=== PATIENT | female | born 1930 | race Hispanic/Latino ===

== ENCOUNTER 2018-03-16 11:51 | Inpatient (IN) | payer MEDICARE, BC ==
[2018-03-16] MEDS ORDERED: Morphine 4 mg/ml ISec IVP STA (12:04)
--- NOTE | 2018-03-16 12:08 | ED PDOC ---
Arrival/HPI - General Chief Complaint: Hip Pain Time Seen by Provider: 03/16/18 11:54 Historian: Patient, EMS - History of Present Illness Narrative History of Present Illness (Text): 03/16/18 12:05 pt p/w + s/p trip and fall while in the kitchen today, just prior to Emergency department arrival today; pt states she was in the kitchen sitting/reading, when she tried to get up to do something, her left leg got caught and she subsequently fell; + left hip/groin/pelvic region pain; pt was unable to stand up on her own, pt states she crawled along the floor and was able to obtain help ; pt states no LOC pre/post fall, no headaches/head injury, no neck pain, no vision changes, no cp/sob/palpitations, no abd pain, no n/v, no numbness/ tingling, no urinary/bowel changes, no incontinence, no sick contact/travel; no gross bleeding; pt is here for further eval; pt's without other complaints. PCP: DR PORTILLO pt had left foot bunion surgery pt lives alone Time/Duration: Prior to Arrival Symptom Onset: Sudden Symptom Course: Unchanged Quality: Stabbing, Throbbing Severity Level: 9, Severe Activities at Onset: Other (getting up from sitting) Context: Home Past Medical History - Provider Review Nursing Documentation Reviewed: Yes - Travel History Have you recently traveled outside [place] w/in the past 3 mons?: No - Past History Past History: No Previous - Infectious Disease Hx of Infectious Diseases: None - Tetanus Immunization Tetanus Immunization: Unknown - Reproductive Menopause: Yes Currently : No - Past Medical History Past Medical History: No Previous - Cardiac Hx Hypertension: Yes Hx Pacemaker: No Other/Comment: 3 stents - Neurological Hx Paralysis: No - HEENT Hx Glaucoma: Yes - Endocrine/Metabolic Hx Diabetes Mellitus Type 2: Yes - Hematological/Oncological Hx Blood Transfusions: No Hx Blood Transfusion Reaction: No - Musculoskeletal/Rheumatological Hx Musculoskeletal Disorders: Yes - Psychiatric Hx Emotional Abuse: No Hx Physical Abuse: No Hx Substance Use: No - Surgical History Other/Comment: Cardiac stent - Anesthesia Hx Anesthesia Reactions: No Hx Malignant Hyperthermia: No - Suicidal Assessment Feels Threatened In Home Enviroment: No Family/Social History - Physician Review Nursing Documentation Reviewed: Yes Family/Social History: No Known Family HX Smoking Status: Never Smoked Hx Alcohol Use: No Hx Substance Use: No Hx Substance Use Treatment: No Allergies/Home Meds Allergies/Adverse Reactions: Allergies No Known Allergies Allergy (Verified 03/16/18 11:57) Home Medications: Home Meds Medication Instructions Recorded Confirmed Latanoprost 0.005% Opht [XALATAN 1 drp OD QPM 03/07/12 03/16/18 2.5 Ml] Aspirin [Aspir 81] 81 mg PO DAILY 01/30/14 03/16/18 Ascorbic Acid [Vitamin C] 1,000 mg PO DAILY 06/07/16 03/16/18 Atorvastatin [Lipitor] 1 tab PO DAILY 06/07/16 03/16/18 Bioflav,Lemon/Vit Bcomp,C 1 tab PO DAILY 06/07/16 03/16/18 [Lipo-Flavonoid Plus Caplet] Calcium Carbonate [Caltrate] 1 tab PO DAILY 06/07/16 03/16/18 Cholecalciferol (Vitamin D3) 1,000 unit PO 06/07/16 [Vitamin D3] Cinnamon Bark [Cinnamon] 1 tab PO BID 06/07/16 03/16/18 Dorzolamide 2% [Trusopt] 1 drop OS TID 06/07/16 03/16/18 Insulin Aspart, Recombinant 0 units SQ ACTID 06/07/16 03/16/18 [Novolog] Insulin Detemir [Levemir] 19 units SQ HS 06/07/16 03/16/18 Metoprolol Tartrate [Lopressor] 0.5 tab PO DAILY 06/07/16 03/16/18 Potassium Aspartate [Aspartic Acid 1 tab PO DAILY 06/07/16 03/16/18 Potassium Salt] Prednisolone Acetate [Pred Forte] 1 drop OS QID 06/07/16 03/16/18 Ramipril [Altace] 25 mg PO DAILY 06/07/16 03/16/18 Review of Systems - Review of Systems Constitutional: Normal Eyes: Normal ENT: Normal Respiratory: Normal. absent: SOB Cardiovascular: Normal. absent: Chest Pain Gastrointestinal: Normal. absent: Abdominal Pain, Nausea, Vomiting Genitourinary Female: Normal Musculoskeletal: Other (left hip/groin/pelvic pain) Skin: Normal Neurological: Normal Endocrine: Normal Hemo/Lymphatic: Normal Psychiatric: Normal Physical Exam - Physical Exam Narrative Physical Exam (Text): 03/16/18 12:05 General: alert/awake, GCS = 15, oriented x 3, resting in bed, uncomfortable, cooperative, interactive; mild distress due to pain Head: NC/AT; mild bi-temporal wasting EYE: PERRLA, EOMI, sclera anicteric, no nystagmus, no photophobia; visual field intact b/l Facial: WNL Oral: uvula/tongue are midline, no exudate/lesions, no drooling/stridor, no dysphonia; intact dentitions NECK: intact ROM, no midline tenderness, no nuchal rigidity, no meningeal signs ; no step off Chest: CTA b/l, no w/r/r; no tachypenia, no accessory muscle use noted Cardiac: +S1, +S2, no m/r/r, no tachycardia Abdominal: +BS, soft/nd/nt, well nourished patient; no masses/rebound/guarding/ rigidity; no bray's sign, no mcburney's point tenderness Extremities: intact ROM to all limbs except to left hip/lower legs; pt is wearing a left knee brace; unable to externally/internally rotate left hip without causing pain; no shortening of the left leg is noted; no gross deformities noted to left leg; strength 5/5 grossly intact in all limbs, neurovasc intact b/l; + not ambulatory; reflex +2/2 BACK: no step off, no midline tenderness, NO crepitus, no gross deformities noted; Intact ROM SKIN: cap refill < 1 sec, no ulcerations, no petechiae, no rashes; slight pallor noted NEURO: CNII-XII WNL, no facial asymmetries, no slurr speech, oriented x 3 NIH stroke scale ~ 0 Psych: normal insight, normal affect; follows command with ease Vital Signs Temp Pulse Resp BP Pulse Ox 03/16/18 11:51 98.2 F 67 18 167/77 H 99 Temperature: Afebrile Blood Pressure: Hypertensive Pulse: Regular Respiratory Rate: Normal Appearance: Positive for: Well-Appearing, Non-Toxic, Uncomfortable Pain Distress: None Mental Status: Positive for: Alert and Oriented X 3 - Systems Exam Head: Present: Atraumatic, Normocephalic Medical Decision Making ED Course and Treatment: 03/16/18 12:07 Impression: fall, left hip/pelvic pain i have consider all the differential diagnosis regarding pt's chief medical complaints/clinical findings, including but are not limited to: fall, left hip/ pelvic pain A/P: left hip/pelvic pain, fall - labs - iv - xray - supportive care - observe/reevaluation 1300 pt is currently awaiting labs/diagnostic results pt is comfortable appearing, but movement causes more pain to left hip/leg region 1340 abnl xray is noted, pt will require admission, likely ortho consult for possible hip surgery 03/16/18 13:[address] Gray, internal communications writer pcp for patient, who is made aware of pt's medical complaints and Emergency department mgt/txt/diagnostic findings; will ADMIT PATIENT. Would like to consult Dr. Goodwin, orthopedics, and Dr. Thomas (cardiology) for medical clearance. Family/patient are made aware of pt's medical results agrees with admission family expressed that they would not want Dr. Street as the orthopedist on the case. Currently making arrangements for another orthopedists. 03/16/18 1355 after discussions, family are ok with Dr Goodwin as the ortho strategic planning consultant 1400 - paging Dr Goodwin, no reply will continue to page [phone] - i spoke to Dr Goodwin, made aware, agrees with Emergency department mgt /txt, will evaluate patient most likely in AM Re-evaluation Time: 13:50 Reassessment Condition: Improving,but remains with symptoms - Lab Interpretations Lab Results: 03/16/18 12:56 03/16/18 12:56 Lab Results 03/16/18 13:30: Blood Type Confirm O POSITIVE 03/16/18 12:56: Blood Type O POSITIVE, Antibody Screen Negative, BBK History Checked No verified bt 03/16/18 12:56: Sodium 135, Potassium 4.4, Chloride 100, Carbon Dioxide 23, Anion Gap 17, BUN 23 H, Creatinine 0.8, Est GFR ( Amer) > 60, Est GFR ( Non-Af Amer) > 60, Random Glucose 244 H, Calcium 10.0, Total Bilirubin 0.6, AST 24, ALT 23, Alkaline Phosphatase 68, Total Creatine Kinase 53, Troponin I < 0.01 , Total Protein 7.7, Albumin 4.5, Globulin 3.2, Albumin/Globulin Ratio 1.4 03/16/18 12:56: PT 11.2, INR 0.98, APTT 30.5 03/16/18 12:56: WBC 10.2, RBC 3.94, Hgb 11.8 L, Hct 35.1 L, MCV 89.1, MCH 29.9, MCHC 33.6, RDW 13.0, Plt Count 212, MPV 10.4, Gran % 80.8 H, Lymph % (Auto) 12.7 L, [place] % (Auto) 5.9, Eos % (Auto) 0.4 L, Baso % (Auto) 0.2, Gran # 8.24 H , Lymph # (Auto) 1.3, [place] # (Auto) 0.6, Eos # (Auto) 0.0, Baso # (Auto) 0.02 I have reviewed the lab results: Yes Interpretation: All labs normal - RAD Interpretation Narrative RAD Interpretations (Text): 03/16/18 13:[address] Andre shows: Xray lft hip reviewed, shows left femoral neck fracture. Pelvis is stable. Chest X-ray reviewed,s hows no acute disease. Radiology Orders: 03/16/18 12:03 HIP MIN 2V W/ PELVIS LT [RAD] Stat 03/16/18 12:04 CHEST ONE VIEW [RAD] Stat Assistant Softball Coach: ED Physician, Radiologist - EKG Interpretation EKG Interpretation (Text): 03/16/18 12:39 NSR at 75 bpm, normal axis, no ectopy, qs in leads III, inverted T in leads III/ V1, no st changes, BORDERLINE EKG; unchanged compare with old ekg 01/2014 Interpreted by ED Physician: Yes Type: 12 lead EKG Comparison: Similar to previous EKG - Medication Orders Current Medication Orders: Sodium Chloride (Sodium Chloride 0.9%) 1,000 mls @ 100 mls/hr IV .Q10H ANURAG Last Admin: 03/16/18 12:45 Dose: 100 mls/hr eMAR Start Stop Document 03/16/18 12:45 OCS (Rec: 03/16/18 12:46 OCS [id number]) Intravenous Solution Start Date 03/16/18 Start Time 12:45 Discontinued Medications Morphine Sulfate (Morphine) 4 mg IVP STAT STA Stop: 03/16/18 12:05 Last Admin: 03/16/18 12:45 Dose: 4 mg MAR Pain Assessment Document 03/16/18 12:45 OCS (Rec: 03/16/18 12:45 OCS [id number]) Pain Reassessment Is this a pain reassessment? Yes Sleep Is patient sleeping during reassessment? No Presence of Pain Presence of Pain Yes Location Left, Right or Bilateral Left Pain Location Body Site Hip Description Description Constant Aggravating Factors ADL's IVP Administration Document 03/16/18 12:45 OCS (Rec: 03/16/18 12:45 OCS [id number]) Charges for Administration # of IVP Administrations 1 Disposition/Present on Arrival - Present on Arrival Any Indicators Present on Arrival: No History of DVT/PE: No History of Uncontrolled Diabetes: Yes Urinary Catheter: No History of Decub. Ulcer: No History Surgical Site Infection Following: None - Disposition Have Diagnosis and Disposition been Completed?: Yes Diagnosis: Fracture of neck of left femur, Fall, Hyperglycemia Disposition: HOSPITALIZED Disposition Time: 14:00 Patient Plan: Admission Patient Problems: Current Active Problems Problem Status Onset Fracture of neck of left femur Acute Fall Acute Hyperglycemia Acute Condition: STABLE
[2018-03-16] MEDS: Sodium Chloride 0.9% 1,000 ML IV SCH ×2 (12:45→22:20)
[2018-03-16 13:10] LABS: BASO # 0.02 K/mm3 (0.0-2.0); BASO % 0.2 % (0.0-3.0); EOS % 0.4 % (1.5-5.0); GRAN # 8.24 (1.4-6.5); GRAN % 80.8 % (50.0-68.0); HEMOGLOBIN 11.8 g/dL (12.0-16.0); LYMPH # 1.3 (1.2-3.4); LYMPH % 12.7 % (22.0-35.0); MEAN CELL VOLUME 89.1 fl (80.0-105.0); MEAN CORPUSCULAR HEMOGLOBIN 29.9 pg (25.0-35.0); MEAN CORPUSCULAR HGB CONC 33.6 g/dl (31.0-37.0); MEAN PLATELET VOLUME 10.4 fl (7.0-11.0); MONO # 0.6 (0.1-0.6); MONO % 5.9 % (1.0-6.0); RBC 3.94 10^6/uL (3.5-6.1); WHITE BLOOD COUNT 10.2 10^3/ul (4.5-11.0)
[2018-03-16 13:17] LABS: ALB/GLOB RATIO 1.4 (1.1-1.8); ALBUMIN 4.5 g/dL (3.0-4.8); ALT/SGPT 23 U/L (7-56); AST/SGOT 24 U/L (14-36); BLOOD UREA NITROGEN 23 mg/dL (7-21); GFR AFRICAN-AMERICAN > 60; GFR NON-AFRICAN AMERICAN > 60
[2018-03-16 13:28] LABS: TROPONIN I < 0.01 ng/mL
[2018-03-16 13:49] LABS: INR 0.98 (0.93-1.08); PARTIAL THROMBOPLASTIN TIME 30.5 Seconds (25.1-36.5); PROTHROMBIN TIME 11.2 SECONDS (9.4-12.5)
--- NOTE | 2018-03-16 16:37 | RAD ---
PROCEDURE: Left Hip X-ray Radiographs. HISTORY: Status post fall in the kitchen, cant get up, L pelvic/hip pain. COMPARISON: Comparison made with abdominal radiographs 09/25/2012 which image pelvis and both hips FINDINGS: BONES: Subcapital fracture left hip with superior displacement of the left greater trochanter with respect to the left femoral head - with varus angulation . Left femoral head remains appropriately located within the left acetabulum JOINTS: Mild degenerative osteoarthritis SOFT TISSUES: Normal. OTHER FINDINGS: None. IMPRESSION: Subcapital fracture left hip with superior displacement of the left greater trochanter with respect to the left femoral head - with varus angulation .
--- NOTE | 2018-03-16 16:38 | RAD ---
PROCEDURE: CHEST RADIOGRAPH, 1 VIEW HISTORY: Status post fall COMPARISON: Comparison chest 01/30/2014 FINDINGS: LUNGS: Minor biapical pleural thickening. No acute infiltrates PLEURA: No pneumothorax or pleural fluid seen. CARDIOVASCULAR: Normal. OSSEOUS STRUCTURES: No significant abnormalities. VISUALIZED UPPER ABDOMEN: Normal. OTHER FINDINGS: None. IMPRESSION: No active disease. Minor biapical pleural thickening.
--- NOTE | 2018-03-16 16:55 | CARD ---
APPROVED REPORT EKG Measurement Heart [id number] IN [id number] <Conclusion> Normal sinus rhythm Normal ECG
[2018-03-16 17:48] VITALS: BMI 21.8
[2018-03-16] MEDS ORDERED: Pneumococcal 23-Valent Vaccine IM ONE (17:49)
[2018-03-16] MEDS ORDERED: Enoxaparin 40 mg Syringe SC ONE (22:00)
[2018-03-16] MEDS: Insulin Lispro (humaLOG) LOW Coverage SC SCH (22:12)
[2018-03-16] MEDS: Insulin Detemir 100 units/ml Vial (Levemir) SC SCH (22:13)
[2018-03-16] MEDS: Latanoprost 2.5 ml Opht Soln OD SCH (22:14)
[2018-03-17 03:35] LABS: URINE APPEARANCE CLEAR (CLEAR); URINE BILIRUBIN NEGATIVE (NEGATIVE); URINE BLOOD NEGATIVE (NEGATIVE); URINE COLOR YELLOW (YELLOW); URINE GLUCOSE (UA) >=1000 mg/dL (NEGATIVE); URINE LEUKOCYTE ESTERASE NEGATIVE Leu/uL (NEGATIVE); URINE PROTEIN NEGATIVE mg/dL (<30 mg/dL); URINE UROBILINOGEN 0.2 E.U./dL (<1 E.U./dL)
[2018-03-17] MEDS: Insulin Lispro (humaLOG) LOW Coverage SC SCH ×4 (08:09→23:04)
[2018-03-17] MEDS: Cholecalciferol 1,000 INTLU TAB PO SCH (09:31)
[2018-03-17] MEDS: Dorzolamide 2% Opht Sol 10ml OS SCH ×3 (09:36→18:54)
--- NOTE | 2018-03-17 10:01 | CON ---
DATE: 03/17/2018 REASON FOR CONSULT: Left hip fracture. HISTORY OF PRESENT ILLNESS: This is an 87-year-old female, who presents status post a fall with left hip pain and inability to ambulate. According to the patient and her son, the patient was basically a home ambulator. The patient has a history of severe left knee arthritis, but is otherwise independent. The patient denies any other injury. She denies any loss of consciousness. PAST MEDICAL HISTORY: Significant for history of coronary artery disease and the patient has a history of 2 prior stents placed. PHYSICAL EXAMINATION: GENERAL: On exam, this is an elderly female, in no apparent distress. She is awake, alert and oriented x3. EXTREMITIES: Evaluation of the left lower extremity shows the left lower extremity is slightly internally rotated. She has what looks like a valgus deformity of the left knee. She has pain with passive range of motion of the left hip. Her thigh is otherwise soft and nontender. Her calf is soft and nontender. Grossly, she is neurovascularly intact. ASSESSMENT: X-rays of the left hip show a left displaced femoral neck fracture. PLAN: At this point, recommendations are for a left hip arthroplasty once the patient is medically optimized. The risks, benefits and alternatives were discussed with the patient and the patient's son, Ayo and they want to proceed. We will plan on scheduling her for surgery tomorrow. Today, she will receive her Lovenox as DVT prophylaxis. Abhishek Melvin MD
[2018-03-17] MEDS: POLYETHYLENE GLYCOL 3350 17 GM/Dose PACKET PO SCH ×2 (12:18→19:00)
--- NOTE | 2018-03-17 13:12 | RAD ---
PROCEDURE: Left Knee Radiographs. HISTORY: Pain. COMPARISON: None. FINDINGS: BONES: No evidence of acute displaced fracture nor dislocation. The osseous structures intact JOINTS: Degenerative osteoarthritis most significantly affecting the lateral compartment lateral compartment. With marked joint space narrowing subchondral sclerosis and lateral marginal osteophyte formation. . JOINT EFFUSION: Tiny suprapatellar joint effusion felt to be present. OTHER FINDINGS: Tiny elliptical shaped corticated bony density within the medial soft tissues adjacent to the medial femoral condyles consistent with Justin-Stieda. IMPRESSION: No evidence of acute displaced fracture nor dislocation. Tricompartmental degenerative osteoarthritis most significantly affecting the lateral compartment.
--- NOTE | 2018-03-17 13:26 | HP ---
CHIEF COMPLAINT AND HISTORY OF PRESENT ILLNESS: This is an 87-year-old female, who was at home and fell. She was in her kitchen when she had the fall. She states that she was sitting and when she tried to get up, she lost her balance and fell. She has been complaining of pain in the left hip. She says she is not able to move her leg. The pain initially was 10/10. She did not lose consciousness. She denies any chest pain or shortness of breath. No fevers or chills. No nausea. No vomiting. No abdominal pain. No back pain. No dysuria or frequency. REVIEW OF SYMPTOMS: All other review of symptoms are within normal limits except that was mentioned. ALLERGIES: NO KNOWN DRUG ALLERGIES. HOME MEDICATIONS: Have been reviewed on the [facility]. PAST MEDICAL HISTORY: 1. Diabetes type 2. 2. GERD. 3. Osteoarthritis. 4. Gastritis. 5. Cholelithiasis. 6. Tinnitus. 7. Fatty liver. 8. History of seizures. 9. History of hydrocephalus. 10. History of benign brain tumor. 11. History of pancreatic cyst. FAMILY HISTORY: Noncontributory. SOCIAL HISTORY: She does not smoke, drink or use drugs. PHYSICAL EXAMINATION: VITAL SIGNS: She has a temperature of 98.4, pulse of 59, blood pressure is 145/64, respirations 18. Height is 5 feet 4. Weight is 127 pounds. BMI is 21.8. GENERAL: The patient lying in bed, uncomfortable, and in no acute distress. HEENT: Atraumatic and normocephalic. Anicteric sclerae. Moist mucosa. [place] conjunctivae. No oral lesions. NECK: No JVD, anterior and posterior adenopathy, thyromegaly, or bruits. CARDIOVASCULAR: S1 and S2 regular. No murmur, rubs, or gallop. LUNGS: Clear to auscultation bilaterally. No wheezes, rales, or rhonchi. ABDOMEN: Bowel sounds are positive. Soft, nontender and nondistended. No hepatosplenomegaly. No rebound and no guarding EXTREMITIES: No cyanosis, clubbing, or edema. The left leg, she is not able to move her leg because of pain and weakness. NEUROLOGIC: No facial asymmetry. Tongue is midline. No uvula deviation. Power is 5/5 upper extremity and lower extremity. Sensation intact in upper extremity and lower extremity. PSYCHIATRIC: She is awake, alert and oriented x3. No anxiety or depression. She has normal affect. GENITOURINARY: No CVA tenderness. VASCULAR: 2+ pulses in the carotid pulses and pedal pulses. SKIN: No erythema or nodules. SPINE: Shows normal curvature. Her chest x-ray done shows no active disease. Hip x-ray done shows subcapital fracture in the left hip with superior displacement. EKG shows sinus rhythm with a rate of 75, QTc is 419. ASSESSMENT: 1. Left hip subcapital fracture with superior displacement. 2. Coronary artery disease with stent. 3. Diabetes type 2. 4. Hypertension. 5. Glaucoma. 6. Dyslipidemia. 7. Fall. PLAN: The patient is currently comfortable. She has been admitted to the hospital. Dr. Melvin has evaluated the patient and is going to take the patient to the OR tomorrow. The patient is going to be evaluated by Cardiology for preop. The patient is on Altace for hypertension, this will be continued. She is on Caltrate for her osteoporosis. She is going to continue Levemir for diabetes. She is on Lipitor for dyslipidemia. She is on Lovenox for DVT prophylaxis. She is on IV fluids. I will discontinue the patient's IV fluids if she is able to drink and is. She is not n.p.o. She will be n.p.o. after midnight. She is on her eyedrops with the Xalatan. She is on Trusopt for eyedrops as well. She has a Curiel that will be placed. Currently, she is not requiring any significant pain medications. She is going to have a left hip and knee x-ray done. She does have history of knee pain with osteoarthritis of severe. I have concerns about her rehab potential as she does have significant arthritis in the left knee as well. The patient's son is asking for evaluation by [facility] for possible acute rehab. I did advise him that she may have difficulty in doing such aggressive rehab given that she does have disability with her knees. I will speak to the social work supervisor about getting evaluations done. If she does not qualify that there is a subacute rehab facility closer to where the patient's son lives that he has a preference for. I did advise the son that the patient may have postop complications like delirium. We will try to minimize the patient's hospital stay to decrease risk of nosocomial infections. Horacio Gray MD
[2018-03-17] MEDS ORDERED: Enoxaparin 40 mg Syringe SC ONE ×2 (20:00→22:00)
[2018-03-17] MEDS: Insulin Detemir 100 units/ml Vial (Levemir) SC SCH (23:05)
[2018-03-17] MEDS: Latanoprost 2.5 ml Opht Soln OD SCH (23:12)
--- NOTE | 2018-03-18 00:07 | CON ---
DATE: 03/17/2018 REQUESTING PHYSICIAN: Horacio Gray MD REASON FOR CONSULTATION: Preoperative cardiac evaluation. HISTORY OF PRESENT ILLNESS: This is an 87-year-old woman, well known to me, with a history of coronary artery disease status post prior anterior infarction and PCI of her LAD, who suffered a fall at home yesterday. She suffered resultant left hip fracture and will need surgical repair. Preoperative cardiovascular testing was requested. She has had no recent chest pain. She has had no dyspnea. Her activities are mainly limited because of her severe arthritis. She is currently lying in bed on 5R, complaining of hip pain. She denied any loss of consciousness with her fall. PAST MEDICAL HISTORY: Her past history is noted for the problems mentioned above. She has a history of diabetes and glaucoma. MEDICATIONS AT HOME: Include eyedrops, aspirin, Lipitor, metoprolol 25 mg daily, Levemir insulin. ALLERGIES: NONE. SOCIAL HISTORY: She does not smoke or drink. She lives with her and family. FAMILY HISTORY: Unremarkable for premature heart disease. Both parents are . REVIEW OF SYSTEMS: A 10-point review of systems is otherwise unremarkable. PHYSICAL EXAMINATION: GENERAL: She is a very elderly woman, who appears hemodynamically stable and with some mild discomfort secondary to her hip pain. VITAL SIGNS: Her blood pressure is 146/64, pulse of 60, respirations are 14. She is afebrile. HEENT: Normocephalic, atraumatic. NECK: Supple. No JVD noted. CHEST: Clear anteriorly. HEART: PMI displaced laterally, a soft systolic murmur in the left sternal border. ABDOMEN: Soft, nontender, normoactive bowel sounds. EXTREMITIES: No edema. SKIN: Warm and dry. PSYCHIATRIC: Normal mood and affect. NEUROLOGIC: Alert and oriented x3. Left leg motion limited due to pain. DIAGNOSTIC DATA: White count is 10.2, hemoglobin and hematocrit are 12 and 35.1, with a platelet count of 212,000. Potassium 4.4; BUN and creatinine 23 and 0.8. Troponin is negative. Chest x-ray reveals normal cardiac silhouette, with no significant changes. Electrocardiogram reveals normal sinus rhythm, nonspecific ST-T abnormalities. IMPRESSION: 1. Known coronary disease status post remote percutaneous coronary intervention of her left anterior descending, clinically stable at present. 2. Recent mechanical fall, no evidence of syncope. 3. Resultant hip fracture. 4. Rest of problems as noted. 5. From a cardiac standpoint, she appears to be at average risk for her age for any perioperative cardiac complications; at this time, she appears clinically optimized to proceed. RECOMMENDATIONS: Limiting anesthesia time as much as possible would be appropriate given her age. A beta-lior therapy will be continued throughout her perioperative phase. We will continue to follow and make further recommendations as needed. Thank you for this consultation. Jayesh Nieto MD [facility] # [phone] MTDHerlinda
[2018-03-18] MEDS: Insulin Lispro (humaLOG) LOW Coverage SC SCH ×3 (07:56→22:08)
[2018-03-18] MEDS: POLYETHYLENE GLYCOL 3350 17 GM/Dose PACKET PO SCH ×2 (09:00→22:10)
[2018-03-18] MEDS: Cholecalciferol 1,000 INTLU TAB PO SCH (09:00)
[2018-03-18] MEDS ORDERED: Sodium Chloride 0.9% 1,000 ML IV SCH (09:15)
[2018-03-18] MEDS: Dorzolamide 2% Opht Sol 10ml OS SCH ×2 (10:05→22:11)
[2018-03-18] MEDS ORDERED: Albuterol-Ipratrop 3 mg / 0.5 (3 ml) UD IH ONE (10:34)
--- NOTE | 2018-03-18 12:09 | CT ---
PROCEDURE: CT HEAD WITHOUT CONTRAST. HISTORY: ams COMPARISON: None available. TECHNIQUE: Axial computed tomography images were obtained through the head/brain without intravenous contrast. Radiation dose: Total exam DLP = 825 mGy-cm. This CT exam was performed using one or more of the following dose reduction techniques: Automated exposure control, adjustment of the mA and/or kV according to patient size, and/or use of iterative reconstruction technique. FINDINGS: HEMORRHAGE: No intracranial hemorrhage. BRAIN: There is atrophy in the right cerebellar hemisphere. There is also a right-sided occipital craniotomy defect No atrophy or chronic microvascular ischemic changes. VENTRICLES: Unremarkable. No hydrocephalus. CALVARIUM: Unremarkable. PARANASAL SINUSES: Unremarkable as visualized. No significant inflammatory changes. MASTOID AIR CELLS: Unremarkable as visualized. No inflammatory changes. OTHER FINDINGS: None. IMPRESSION: No acute findings
--- NOTE | 2018-03-18 12:21 | PN ---
DATE: 03/18/2018 SUBJECTIVE: The patient has left hip fracture. She is waiting for her procedure to be done today. She is currently comfortable. She has no complaints of any headaches or dizziness. She does get episodes of confusion. PHYSICAL EXAMINATION VITAL SIGNS: Temperature is 97.9, pulse of 84, blood pressure is 140/72, respirations 20. GENERAL: The patient is lying in bed, flat, comfortable. HEENT: No oral lesion. Anicteric sclerae. Moist mucosa. NECK: No JVD, adenopathy, or thyromegaly. CARDIOVASCULAR: S1 and S2, regular. No murmurs, rubs, or gallops. LUNGS: Clear to auscultation bilaterally. No wheeze, rales, or rhonchi. ABDOMEN: Bowel sounds are positive, soft, nontender and nondistended. EXTREMITIES: no cyanosis, clubbing or edema. LABORATORY DATA: White count , hemoglobin of 11.8. Creatinine 0.8. ASSESSMENT: 1. Left hip fracture, subcapital. 2. Coronary artery disease with stents. 3. Diabetes type 2. 4. Delirium. 5. Hypertension. 6. Glaucoma. 7. Dyslipidemia. 8. Fall. PLAN: The patient is currently on ramipril for her hypertension. She is on calcium for her osteoporosis. She is going to continue with Levemir for diabetes. She is on Lipitor for dyslipidemia. She is on metoprolol. She is on Lovenox for anticoagulation. The patient is on Trusopt for her eyes. She is on Xalatan. I will place her on saline. She is n.p.o. for her procedure. I did speak to the patient yesterday and she prefers acute rehab, [facility]. Horacio Gray MD
[2018-03-18 14:25] LABS: HEMOGLOBIN 10.2 g/dL (12.0-16.0); MEAN CELL VOLUME 88.3 fl (80.0-105.0); MEAN CORPUSCULAR HEMOGLOBIN 29.8 pg (25.0-35.0); MEAN CORPUSCULAR HGB CONC 33.8 g/dl (31.0-37.0); MEAN PLATELET VOLUME 10.1 fl (7.0-11.0); RBC 3.42 10^6/uL (3.5-6.1); WHITE BLOOD COUNT 10.2 10^3/ul (4.5-11.0)
[2018-03-18 14:28] LABS: BLOOD UREA NITROGEN 15 mg/dL (7-21); CALCIUM 9.2 mg/dL (8.4-10.5); GFR AFRICAN-AMERICAN > 60; GFR NON-AFRICAN AMERICAN > 60
[2018-03-18] MEDS ORDERED: Tranexamic Acid 0 ML ONE ×2 (16:12→16:28)
[2018-03-18] MEDS ORDERED: Bupivacaine 0.5% Inj(30mL) ONE (16:12)
[2018-03-18] MEDS ORDERED: Bupivacaine Liposomal Inj 20 ml ONE (16:13)
[2018-03-18] MEDS ORDERED: Propofol 10 mg/ml Inj (20 ML) ONE (16:55)
[2018-03-18] MEDS ORDERED: Rocuronium 10 mg/ml (5 ml) ONE (16:56)
[2018-03-18] MEDS ORDERED: Metoprolol 1 mg/ml Inj IVP ONE (17:59)
[2018-03-18] MEDS ORDERED: Neostigmine Methylsulfate 3mg/3ml Syringe IV ONE (18:14)
[2018-03-18] MEDS ORDERED: Phenylephrine 10 mg/ml Inj ONE (18:24)
[2018-03-18] MEDS ORDERED: Morphine 2 mg/2 mL syringe IVP PRN ×2 (19:12→19:20)
[2018-03-18] MEDS ORDERED: Lactated Ringer's 1,000 ML IV SCH (19:15)
[2018-03-18] MEDS ORDERED: oxyCODONE 5 mg Immediate Release Tab PO PRN (19:22)
--- NOTE | 2018-03-18 19:26 | PCM.SURG1 ---
Surgeon's Initial Post Op Note - Surgeon's Notes Surgeon: Dr. Abhishek Melvin Alley Worker: Coni Medina PA-C, Joyce PARHAM Type of Anesthesia: General Endo Anesthesia Administered By: Dr. Kennedy Pre-Operative Diagnosis: L femoral neck fracture Operative Findings: see full note Post-Operative Diagnosis: L femoral neck fracture Operation Performed: L hip hemiarthroplasty Specimen/Specimens Removed: femoral head Estimated Blood Loss: EBL {In ML}: 50 Blood Products Given: PRBC (1 unit) Drains Used: No Drains Post-Op Condition: Fair Date of Surgery/Procedure: 03/18/18 Time of Surgery/Procedure: 19:25
[2018-03-18] MEDS ORDERED: Enoxaparin 40 mg Syringe SC SCH (19:30)
[2018-03-18] MEDS: Latanoprost 2.5 ml Opht Soln OD SCH (22:46)
[2018-03-18] MEDS: Insulin Detemir 100 units/ml Vial (Levemir) SC SCH (22:46)
[2018-03-19] MEDS: ceFAZolin 2 GM in Sodium Chloride 0.9% 100 ML IVPB SCH ×2 (00:53→08:43)
--- NOTE | 2018-03-19 06:44 | OP ---
PROCEDURE DATE: 03/18/2018 PREOPERATIVE DIAGNOSIS: Left hip femoral neck fracture. POSTOPERATIVE DIAGNOSIS: Left hip femoral neck fracture. PROCEDURE: Left hip hemiarthroplasty. SURGEON: Abhishek Melvin MD FRAME NAILER: Dr. Melvin is assisted by JAM Hamilton and JAM Julio. Both Ms. Ibrahim and Ms. Rivera were scrubbed throughout the entire case and assisted in patient positioning, retraction and wound closure. TYPE OF ANESTHESIA: General. COMPLICATIONS: None. ESTIMATED BLOOD LOSS: 50 mL. IMPLANT: Biomet left hip hemiarthroplasty. INDICATION FOR PROCEDURE: This is an 87-year-old female, who presented status post fall with complaints of left hip pain and inability to ambulate. Clinical and radiographic examination was consistent with a displaced left hip femoral neck fracture as well as advanced left knee arthritis with the fixed valgus contracture. Recommendations were for a left hip arthroplasty. The risks, benefits and alternatives of the procedure were discussed with the patient including instability, infection and limb length discrepancy and informed consent was obtained. DESCRIPTION OF PROCEDURE: After the surgical site was signed and verified in the preoperative holding area, the patient was taken to the operating room and placed supine on the operating room table. After administration of general anesthesia, the patient received 2 g of Ancef IV. The patient was positioned in the lateral decubitus position with the left hip up towards the ceiling. Care was taken to make sure all bony prominences and nerves were well padded and protected and Venodyne boot was placed on the nonoperative extremity and the left lower extremity was prepped and draped in usual sterile fashion. Bony landmarks were identified about the left proximal femur, approximately 10 cm curvilinear incision was made over proximal femur. Soft tissue was dissected sharply down to the fascia. The fascia was incised. The Charnley retractor was placed. Short external rotators were identified, tied and resected off of the proximal femur. T-type capsulotomy was performed and the hip was dislocated. At this point, femoral neck resection was performed and a Corkscrew was used to remove the femoral head. This was passed off of the field and measured. The acetabulum was inspected for any debris or fractures. The acetabulum was noted to have some chondral wear consistent with osteoarthritis. At this point, attention was directed to the proximal femur. Medullary canal of the proximal femur was reamed and broached sequentially to allow for a 10-mm low-profile press-fit stem. With the stem in place, the calcar was cleaned, and a trial neck and trial head was placed. The hip was reduced and was taken through range of motion, it was noted to be stable with approximately equal limb lengths. At this point, the hip was dislocated and the trial components were removed. The hip joint was pulse lavaged with antibiotic saline solution and dried. The actual stem was then impacted into place careful to maintain proper version. The actual head was then impacted over the stem and the hip was then reduced and taken through a range of motion, was noted to be stable with approximately equal limb lengths. At this point, the arthrotomy was closed using #1 Vicryl suture. The short external rotators were repaired using #1 Vicryl suture. Deep fascia was closed using #1 Vicryl suture. The subcutaneous tissue was closed using 0 Vicryl and 2-0 Vicryl suture and the skin was closed using jarad. Sterile dressing was applied and an abduction pillow was placed. Patient was transferred supine, awakened and taken to the recovery room in stable condition. Abhishek Melvin MD
[2018-03-19 07:03] LABS: HEMOGLOBIN 9.7 g/dL (12.0-16.0); MEAN CELL VOLUME 87.8 fl (80.0-105.0); MEAN CORPUSCULAR HEMOGLOBIN 29.7 pg (25.0-35.0); MEAN CORPUSCULAR HGB CONC 33.8 g/dl (31.0-37.0); RBC 3.27 10^6/uL (3.5-6.1); RED CELL DISTRIBUTION WIDTH 13.6 % (11.5-14.5); WHITE BLOOD COUNT 8.5 10^3/ul (4.5-11.0)
[2018-03-19] MEDS: Insulin Lispro (humaLOG) LOW Coverage SC SCH ×4 (07:30→21:29)
[2018-03-19 07:35] LABS: BLOOD UREA NITROGEN 16 mg/dL (7-21); CALCIUM 8.4 mg/dL (8.4-10.5); GFR AFRICAN-AMERICAN > 60; GFR NON-AFRICAN AMERICAN > 60
--- NOTE | 2018-03-19 08:14 | RAD ---
PROCEDURE: Left Hip and pelvis X-ray Radiographs. HISTORY: s/p L hip rosio COMPARISON: None. FINDINGS: BONES: There is a new left hip prosthesis in satisfactory alignment. There are no complicating factors. No evidence of pelvic fracture JOINTS: Normal. SOFT TISSUES: Normal. OTHER FINDINGS: None. IMPRESSION: There is a new left hip prosthesis in satisfactory alignment. There are no complicating factors. No evidence of pelvic fracture
--- NOTE | 2018-03-19 09:26 | CP.PCM.PN ---
Subjective - Date & Time of Evaluation Date of Evaluation: 03/19/18 Time of Evaluation: 09:23 - Subjective Subjective: Orthopedic f/u Dr. Melvin Patient with daughter at bedside. Patient is calm and pleasant today, not oriented to place, but answers questions appropriately and follows commands ( improved from pre op). She says she only has pain in her hip when she moves. She denies pain in other extremities. Objective - Vital Signs/Intake and Output Vital Signs (last 24 hours): Temp Pulse Resp BP Pulse Ox 98 F 80 18 132/74 94 L 03/18/18 22:00 03/18/18 22:00 03/18/18 22:00 03/18/18 22:00 03/18/18 20:30 Intake and Output: 03/19/18 03/19/18 06:59 18:59 Intake Total 120 Output Total 400 Balance -280 - Medications Medications: Current Medications Acetaminophen (Tylenol 325mg Tab) 650 mg PO Q6H PRN PRN Reason: Pain, moderate (4-7) Last Admin: 03/17/18 18:57 Dose: 650 mg Ascorbic Acid (Vitamin C 500 Mg Tab) 1,000 mg PO DAILY [facility] Last Admin: 03/18/18 09:00 Dose: Not Given Atorvastatin Calcium (Lipitor) 20 mg PO DIN [facility] Last Admin: 03/18/18 22:10 Dose: Not Given Calcium Carbonate (Caltrate) 600 mg PO DAILY [facility] Last Admin: 03/18/18 09:00 Dose: Not Given Cholecalciferol (Vitamin D) 1,000 intlu PO DAILY [facility] Last Admin: 03/18/18 09:00 Dose: Not Given Dorzolamide HCl (Trusopt) 1 ml OS TID [facility] Last Admin: 03/18/18 22:11 Dose: Not Given Enoxaparin Sodium (Lovenox) 40 mg SC Q24H [facility] PRN Reason: Protocol Sodium Chloride (Sodium Chloride 0.9%) 1,000 mls @ 50 mls/hr IV .Q20H [facility] Last Admin: 03/18/18 10:12 Dose: 50 mls/hr Insulin Detemir (Levemir) 20 unit SC HS [facility] Last Admin: 03/18/18 22:46 Dose: 20 unit Insulin Human Lispro (Humalog Low) 0 units SC ACHS [facility] PRN Reason: Protocol Last Admin: 03/19/18 07:30 Dose: Not Given Latanoprost (Xalatan Opht) 2.5 ml OD HS [facility] Last Admin: 03/18/18 22:46 Dose: 2.5 ml Metoclopramide HCl (Reglan) 10 mg IV ONCE PRN PRN Reason: Nausea/Vomiting Metoprolol Tartrate (Lopressor) 12.5 mg PO DAILY [facility] Last Admin: 03/18/18 10:06 Dose: 12.5 mg Morphine Sulfate (Morphine) 2 mg IVP Q15M PRN PRN Reason: Pain, moderate (4-7) Morphine Sulfate (Morphine) 2 mg IVP Q4H PRN PRN Reason: Pain, severe (8-10) Oxycodone HCl (Oxycodone Immediate Release Tab) 5 mg PO Q6H PRN PRN Reason: Pain, moderate (4-7) Polyethylene Glycol (Miralax) 17 gm PO BID [facility] Last Admin: 03/18/18 22:10 Dose: Not Given Ramipril (Altace) 5 mg PO DAILY [facility] Last Admin: 03/18/18 09:00 Dose: Not Given - Labs Labs: 03/19/18 06:15 03/19/18 06:15 PT 11.2 SECONDS (9.4-12.5) 03/16/18 12:56 INR 0.98 (0.93-1.08) 03/16/18 12:56 APTT 30.5 Seconds (25.1-36.5) 03/16/18 12:56 - Extremities Exam Additional comments: +ROM ankle/toes, sensation intact, abd pillow in place, +DP/PT pulses, thigh soft, mild swelling, dressing intact no visible drainage, calves soft NT neg homans Assessment and Plan (1) Fracture of neck of left femur Assessment & Plan: POD#1 s/p left hip hemiarthroplasty -1u PRBC intraop -PT/OT to start today -d/c planning -monitor h/h -post op xrays show well positioned prosthesis -d/w Dr. Melvin, agrees with above Status: Acute
[2018-03-19] MEDS: Cholecalciferol 1,000 INTLU TAB PO SCH (09:50)
[2018-03-19] MEDS: Dorzolamide 2% Opht Sol 10ml OS SCH ×3 (09:51→18:24)
[2018-03-19] MEDS ORDERED: Enoxaparin 40 mg Syringe SC SCH ×3 (10:00→19:00)
--- NOTE | 2018-03-19 10:19 | PN ---
DATE: 03/19/2018 SUBJECTIVE: The patient has no complaints of any chest pain. She does not know that she is in the hospital. She says she has no pain. No headaches. PHYSICAL EXAMINATION: VITAL SIGNS: Temperature is 98, pulse of 80, blood pressure 132/74, respirations 18. GENERAL: The patient is lying in bed, flat, comfortable. HEENT: No oral lesion. Anicteric sclerae. Moist mucosa. NECK: No JVD, adenopathy, or thyromegaly. CARDIOVASCULAR: S1 and S2, regular. No murmurs, rubs, or gallops. LUNGS: Clear to auscultation bilaterally. No wheeze, rales, or rhonchi. ABDOMEN: Bowel sounds are positive, soft, nontender and nondistended. EXTREMITIES: No cyanosis, clubbing or edema. LABORATORY DATA: White count of 8.5, hemoglobin 9.7. Potassium 3.5, creatinine is 0.8. A CT of the head done shows no acute abnormalities. ASSESSMENT: 1. Left hip fracture, subcapital, status post open reduction and internal fixation. 2. Delirium. 3. Coronary artery disease with stents. 4. Diabetes type 2. 5. Hypertension. 6. Glaucoma. 7. Dyslipidemia. 8. Fall. PLAN: The patient is currently comfortable. She is going to need physical therapy, will most likely need either acute rehab or subacute. I think she will most likely need subacute as she may have difficulty in doing 3 hours of physical therapy a day. She is currently on calcium for probable osteoporosis. She is on Levemir for diabetes. She is on Lipitor for dyslipidemia. She is on Lovenox for DVT prophylaxis. She is on MiraLax for her constipation. She is going to be on morphine for pain. She is on IV fluids. I will discontinue the patient's IV fluids at this point. She is going to be on vitamin D. She is also receiving a heart-healthy diet. She is on telemetry. I did speak to the elementary school social worker about discharge planning. Horacio Gray MD
[2018-03-19] MEDS ORDERED: Pantoprazole 40 mg EC Tab PO STA (14:45)
[2018-03-19] MEDS: POLYETHYLENE GLYCOL 3350 17 GM/Dose PACKET PO SCH (18:23)
[2018-03-19] MEDS: Insulin Detemir 100 units/ml Vial (Levemir) SC SCH (21:29)
[2018-03-19] MEDS: Latanoprost 2.5 ml Opht Soln OD SCH (21:30)
[2018-03-20] MEDS ORDERED: Pantoprazole 40 mg EC Tab PO SCH (06:00)
[2018-03-20 07:13] LABS: HEMOGLOBIN 8.8 g/dL (12.0-16.0); MEAN CELL VOLUME 87.8 fl (80.0-105.0); MEAN CORPUSCULAR HGB CONC 33.1 g/dl (31.0-37.0); MEAN PLATELET VOLUME 10.8 fl (7.0-11.0); RBC 3.03 10^6/uL (3.5-6.1); RED CELL DISTRIBUTION WIDTH 13.5 % (11.5-14.5); WHITE BLOOD COUNT 9.3 10^3/ul (4.5-11.0)
[2018-03-20] MEDS: Insulin Lispro (humaLOG) LOW Coverage SC SCH ×3 (08:33→16:20)
[2018-03-20] MEDS: POLYETHYLENE GLYCOL 3350 17 GM/Dose PACKET PO SCH ×2 (10:05→17:29)
[2018-03-20] MEDS: Cholecalciferol 1,000 INTLU TAB PO SCH (10:07)
[2018-03-20] MEDS: Dorzolamide 2% Opht Sol 10ml OS SCH ×3 (10:40→17:29)
--- NOTE | 2018-03-20 14:08 | CP.PCM.PN ---
Subjective - Date & Time of Evaluation Date of Evaluation: 03/20/18 Time of Evaluation: 14:08 - Subjective Subjective: Pt awake, alert. Mental status appears to be back to baseline. Afebrile, VSS L hip: dressing changed incision clean and dry no erythema thigh soft grossly NVI distally Hg 8.8 POD#2 Ortho stable PT, Lovenox Objective - Vital Signs/Intake and Output Vital Signs (last 24 hours): Temp Pulse Resp BP Pulse Ox 98.1 F 75 18 108/57 L 93 L 03/20/18 12:00 03/20/18 12:00 03/20/18 12:00 03/20/18 12:00 03/20/18 06:00 Intake and Output: 03/20/18 03/20/18 06:59 18:59 Intake Total 0 300 Output Total 500 300 Balance -500 0 - Medications Medications: Current Medications Acetaminophen (Tylenol 325mg Tab) 650 mg PO Q6H PRN PRN Reason: Pain, moderate (4-7) Last Admin: 03/17/18 18:57 Dose: 650 mg Ascorbic Acid (Vitamin C 500 Mg Tab) 1,000 mg PO DAILY [facility] Last Admin: 03/20/18 10:07 Dose: 1,000 mg Atorvastatin Calcium (Lipitor) 20 mg PO DIN [facility] Last Admin: 03/19/18 18:22 Dose: 20 mg Calcium Carbonate (Caltrate) 600 mg PO DAILY [facility] Last Admin: 03/20/18 10:07 Dose: 600 mg Cholecalciferol (Vitamin D) 1,000 intlu PO DAILY [facility] Last Admin: 03/20/18 10:07 Dose: 1,000 intlu Dorzolamide HCl (Trusopt) 1 ml OS TID [facility] Last Admin: 03/20/18 10:40 Dose: 1 drop Enoxaparin Sodium (Lovenox) 40 mg SC Q24H [facility] PRN Reason: Protocol Last Admin: 03/19/18 18:22 Dose: 40 mg Insulin Detemir (Levemir) 20 unit SC HS [facility] Last Admin: 03/19/18 21:29 Dose: 20 unit Insulin Human Lispro (Humalog Low) 0 units SC ACHS [facility] PRN Reason: Protocol Last Admin: 03/20/18 12:54 Dose: 1 units Latanoprost (Xalatan Opht) 2.5 ml OD HS [facility] Last Admin: 03/19/18 21:30 Dose: 2.5 ml Metoprolol Tartrate (Lopressor) 12.5 mg PO DAILY [facility] Last Admin: 03/20/18 10:06 Dose: 12.5 mg Morphine Sulfate (Morphine) 2 mg IVP Q4H PRN PRN Reason: Pain, severe (8-10) Oxycodone HCl (Oxycodone Immediate Release Tab) 5 mg PO Q6H PRN PRN Reason: Pain, moderate (4-7) Pantoprazole Sodium (Protonix Ec Tab) 40 mg PO 0600 [facility] Last Admin: 03/20/18 05:38 Dose: 40 mg Polyethylene Glycol (Miralax) 17 gm PO BID [facility] Last Admin: 03/20/18 10:05 Dose: 17 gm Ramipril (Altace) 5 mg PO DAILY [facility] Last Admin: 03/20/18 10:13 Dose: 5 mg - Labs Labs: 03/20/18 06:30 03/19/18 06:15 PT 11.2 SECONDS (9.4-12.5) 03/16/18 12:56 INR 0.98 (0.93-1.08) 03/16/18 12:56 APTT 30.5 Seconds (25.1-36.5) 03/16/18 12:56
[2018-03-20 15:09] VITALS: PULSE 98
--- NOTE | 2018-03-20 16:37 | PN ---
DATE: 03/20/2018 SUBJECTIVE: The patient is seen lying in bed on telemetry. She is fairly comfortable at present. She is less confused today. She is seen in the presence of her son. She denies any chest pain. CURRENT MEDICATIONS: Include Altace 5 mg daily, calcium supplement, insulin coverage, Levemir insulin, Lipitor 20 mg daily, metoprolol 12.5 mg daily, Lovenox, MiraLax, oxycodone, Protonix and eyedrops. PHYSICAL EXAMINATION: GENERAL: She is a very elderly woman who appears comfortable at rest. VITAL SIGNS: Her blood pressure is 124/70, pulse of 90, respirations are 14. She is in sinus rhythm. She is afebrile. HEENT: Head: Normocephalic, atraumatic. NECK: Supple. No JVD noted. CHEST: Bilateral scattered rhonchi. HEART: PMI displaced laterally with soft tone is noted. ABDOMEN: Soft, nontender, normoactive bowel sounds. EXTREMITIES: Her legs are immobilized. No edema noted. DIAGNOSTIC DATA: Hemoglobin and hematocrit 8.8 and 26.6 with a white count of 9.3, platelet count of 148,000. IMPRESSION: 1. Status post recent left hip repair, clinically improved. 2. Severe knee arthritis. 3. Coronary artery disease, status post remote percutaneous coronary intervention, stable at present. 4. Rest of problems as noted. RECOMMENDATIONS: Her current medications should be continued for now. Her son was enquiring as the possibility of eventual knee surgery; however, suddenly recovery from hip surgery should occur first and risk of knee surgery remains significant as well as the challenge of postoperative rehabilitation with knee surgery. His concern is that with given her severe knee arthritis, ambulation will remain difficult and the potential of falls remains high. We will continue to follow and make further recommendations as appropriate. Jayesh Nieto MD
[2018-03-20 16:49] VITALS: BP 124/62; RESP 20; TEMP 98.3; O2SAT 98
--- NOTE | 2018-03-21 07:47 | DS ---
HISTORY OF PRESENT ILLNESS: This is an 87-year-old female who had come into the hospital, was found to have hip fracture, she had gone to the OR and had open reduction and internal fixation. She did well. She did have delirium during the hospital stay. She is awake and alert. She is comfortable. She is waiting for discharge to either acute rehab facility or subacute rehab facility. PHYSICAL EXAMINATION: VITAL SIGNS: Her temperature is 99.7, pulse of 63, blood pressure is 117/52, respiration is 19, O2 saturation is 93%. GENERAL: The patient is lying in bed, flat, comfortable. HEENT: No oral lesion. Anicteric sclerae. Moist mucosa. NECK: No JVD, adenopathy, or thyromegaly. CARDIOVASCULAR: S1 and S2, regular. No murmurs, rubs, or gallops. LUNGS: Clear to auscultation bilaterally. No wheeze, rales, or rhonchi. ABDOMEN: Bowel sounds are positive, soft, nontender and nondistended. EXTREMITIES: No cyanosis, clubbing or edema. LABORATORY DATA: Her hemoglobin is 8.8. Her 25 vitamin D is 33. ASSESSMENT: 1. Left hip fracture, subcapital, status post open reduction and internal fixation. 2. Delirium, improved. 3. Coronary artery disease with stents. 4. Diabetes type 2. 5. Hypertension. 6. Glaucoma. 7. Dyslipidemia. 8. Fall. PLAN: The patient is currently receiving calcium for osteoporosis. She is on Lipitor for dyslipidemia. The patient is on Levemir for diabetes. She is on Lovenox for deep venous thrombosis prophylaxis. She is going to continue with the Protonix. For now, she is on Trusopt for her eyes as well as latanoprost for her glaucoma. She is on a heart-healthy diet. Horacio Gray MD
== END 2018-03-20 18:27 | DRG 470 ==
LOC: ED 11:51 → ERH 14:05 → 5RSO 16:06 → 2RSO 03-18 20:31
PROVIDERS: ADMIT Internal Medicine Nephrology; ATTEND Internal Medicine Nephrology
PROC: 0SRS0JA Replacement of Left Hip Joint, Femoral Surface with Synthetic Substitute, Uncemented, Open Approach (ICD-10-PCS; principal; 2018-03-18 16:30)
DX: S72.012A Unspecified intracapsular fracture of left femur, initial encounter for closed fracture (principal); E11.65 Type 2 diabetes mellitus with hyperglycemia; E78.5 Hyperlipidemia, unspecified; H40.9 Unspecified glaucoma; I10 Essential (primary) hypertension; I25.10 Atherosclerotic heart disease of native coronary artery without angina pectoris; K21.9 Gastro-esophageal reflux disease without esophagitis; K76.0 Fatty (change of) liver, not elsewhere classified; M17.12 Unilateral primary osteoarthritis, left knee; W01.0XXA Fall on same level from slipping, tripping and stumbling without subsequent striking against object, initial encounter; Y92.000 Kitchen of unspecified non-institutional (private) residence as the place of occurrence of the external cause; Z79.4 Long term (current) use of insulin; Z79.82 Long term (current) use of aspirin; Z79.899 Other long term (current) drug therapy; Z86.011 Personal history of benign neoplasm of the brain; Z95.5 Presence of coronary angioplasty implant and graft; R41.0 Disorientation, unspecified; M81.0 Age-related osteoporosis without current pathological fracture